=== PATIENT | female | born 1970 | race Caucasian/White ===

== ENCOUNTER → 2021-01-29 17:14 | Outpatient (CLI) | payer BC, SELFPAY ==
--- NOTE | ~2021-01-29 | MM_ITS ---
EXAMINATION: MM screening rekha BI w baldemar HISTORY: Screening mammogram TECHNIQUE: Craniocaudal and mediolateral oblique 3-D tomosynthesis images were obtained and synthetic 2-D images were generated. CAD analysis was submitted and interpreted. COMPARISON: 12/06/2019 bilateral diagnostic digital mammogram and bilateral complete breast ultrasound examination 06/21/2019 and 12/04/2018 diagnostic right digital mammogram and limited right breast ultrasound 11/18/2018, 11/13/2017, 10/04/2016, 09/15/2015 bilateral digital screening mammogram examinations BREAST PARENCHYMAL COMPOSITION: The breasts are heterogeneously dense, which may obscure small masses . FINDINGS: There is no evidence of suspicious mass, calcification, or architectural distortion to sugg est malignancy in either breast. There has been no suspicious interval change. IMPRESSION: 1. No mammographic evidence of malignancy. 2. Recommend routine screening mammography in one year. BI-RADS Category 1: Negative Reviewed, dictated and finalized at location A. ER REPAIR
== END ==
PROVIDERS: Visit Provider Obstetrics & Gynecology
DX: Z12.31 Encounter for screening mammogram for malignant neoplasm of breast (principal)
CPT/HCPCS: 77063; 77067

== ENCOUNTER → 2022-03-28 16:01 | Outpatient (CLI) | payer BC, SELFPAY ==
--- NOTE | ~2022-03-28 | MM_ITS ---
EXAMINATION: MM screening rekha BI w baldemar HISTORY: Screening mammogram TECHNIQUE: Craniocaudal and mediolateral oblique 3-D tomosynthesis images were obtained and synthetic 2-D images were generated. CAD analysis was submitted and interpreted. COMPARISON: 01/29/2021 bilateral screening mammogram 12/06/2019 bilateral diagnostic mammography and bilateral complete breast ultrasound 06/21/2019 and 12/04/2018 diagnostic right mammogram and limited right breast ultrasound 11/18/2018 bilateral screening mammogram BREAST PARENCHYMAL COMPOSITION: The breasts are heterogeneously dense, which may obscure small masses . FINDINGS: There is no evidence of suspicious mass, calcification, or architectural distortion to sugg est malignancy in either breast. There has been no suspicious interval change. IMPRESSION: 1. No mammographic evidence of malignancy. 2. Recommend routine screening mammography in one year. BI-RADS Category 1: Negative Reviewed, dictated and finalized at location A.
== END ==
PROVIDERS: PCP Internal Medicine; Visit Provider Obstetrics & Gynecology
DX: Z12.31 Encounter for screening mammogram for malignant neoplasm of breast (principal)
CPT/HCPCS: 77063; 77067

== ENCOUNTER → 2022-05-20 08:44 | Outpatient (CLI) | payer BC, SELFPAY ==
--- NOTE | ~2022-05-20 | US_ITS ---
EXAMINATION: US right upper quadrant DATE: 05/20/2022 09:00 INDICATION: Elevated liver enzymes TECHNIQUE: Multiple grayscale and Doppler ultrasound images of the abdomen were obtained. COMPARISON: 06/24/2019 FINDINGS: The head and body of the pancreas are normal. The pancreatic tail is obscured by bowel gas. The liver demonstrates increased echogenicity, heterogenous echotexture, and decreased through trans mission. No surface nodularity. Normal hepatopetal flow in the main portal vein. The gallbladder is s urgically absent. The normal common bile duct measures 4 mm. IMPRESSION: 1. Diffuse hepatic steatosis. Reviewed, dictated and finalized at location A.
== END ==
PROVIDERS: PCP Internal Medicine; Visit Provider Internal Medicine Gastroenterology
DX: K75.9 Inflammatory liver disease, unspecified (principal); K76.0 Fatty (change of) liver, not elsewhere classified
CPT/HCPCS: 76705

== ENCOUNTER → 2023-05-15 14:52 | Outpatient (CLI) | payer BC, SELFPAY ==
--- NOTE | ~2023-05-15 | MM_ITS ---
EXAMINATION: MM screening rekha BI w baldemar HISTORY: Screening mammogram TECHNIQUE: Craniocaudal and mediolateral oblique 3-D tomosynthesis images were obtained and synthetic 2-D images were generated. CAD analysis was submitted and interpreted. COMPARISON: 03/28/2022, 01/29/2021 bilateral screening mammogram examinations BREAST PARENCHYMAL COMPOSITION: The breasts are heterogeneously dense, which may obscure small masses . FINDINGS: Partially circumscribed mass is suggested 2.2 cm deep to the nipple on MLO Tomosynthesis im age 57/74, clinical Tomosynthesis image 33/70. Diagnostic right mammogram and right breast ultrasound examination are recommended. Possible mass or masses suggested on the left. Heterogeneously dense stroma limits evaluation. Bilate ral diagnostic mammography and breast ultrasound examination are recommended. There is no evidence of suspicious mass, calcification, or architectural distortion to suggest malignancy in either breast. There has been no suspicious interval change. IMPRESSION: 1. Possible bilateral breast masses 2. Bilateral diagnostic mammography and bilateral breast ultrasound examination are recommended BI-RADS Category 0: Incomplete: Needs additional imaging evaluation. Reviewed, dictated and finalized at location A.
== END ==
PROVIDERS: PCP Internal Medicine; Visit Provider Obstetrics & Gynecology
DX: Z12.31 Encounter for screening mammogram for malignant neoplasm of breast (principal)
CPT/HCPCS: 77063; 77067

== ENCOUNTER 2023-06-17 09:58 | Outpatient (CLI) | payer BC, SELFPAY ==
--- NOTE | ~2023-06-17 | MMUS_ITS ---
EXAMINATION: MM diagnostic rekha BI w baldemar, US breast BI complete HISTORY: Bilateral breast masses suggested on 05/15/2023 bilateral screening mammogram TECHNIQUE: Additional 3-D tomosynthesis images of both breasts were performed and synthetic 2-D image s were generated. CAD analysis was submitted and interpreted. High resolution complete bilateral esther st ultrasound examination including all 4 quadrants and subareolar areas was performed. COMPARISON: 05/15/2023 bilateral screening mammogram FINDINGS: MAMMOGRAPHIC FINDINGS: A circumscribed benign-appearing approximately 13 x 15 mm mass with halo sign is noted anteriorly in the upper mid right breast, appearing mammographically benign. Heterogeneously dense stroma of both breasts may obscure additional masses. Therefore, complete bilat eral breast ultrasound examination was performed. ULTRASOUND: Right breast: 12:00 subareolar area, corresponding to the mammographic findings: There is a 7.4 x 13 x 12 mm circum scribed hypoechoic solid appearing lesion with through transmission posterior enhancement, likely a b enign fibroadenoma or benign complicated cyst. 5:00 subareolar area: 3.2 x 4.5 x 5.7 mm simple cyst with through transmission and posterior enhancem ent 8:00 4 cm from nipple: Septated 4.4 x 5 x 3.2 mm cyst 10:00 7 cm from nipple: Parallel circumscribed 2.8 x 5.7 x 4.4 mm sonolucency consistent with small c yst Left breast: 12:00 1 cm from nipple: Irregular hypoechoic solid mass lesion measuring approximately 12 x 12 mm. Th e margins are spiculated and irregular. Ultrasound-guided biopsy is recommended. 3:00 3 cm from nipple: Parallel circumscribed hypoechoic 2.8 x 6.7 x 7.4 mm lesion without shadowing or internal vascularity, likely benign IMPRESSION: 1. Suspicious irregular 12 mm solid mass of left breast at 12:00 1 cm from nipple 2. Ultrasound-guided biopsy of left 12:00 mass is recommended BI-RADS category 4, suspicious findings. Dr. Watson telephoned the report and ultrasound-guided biopsy recommendation for left breast 12:00 lesi on on 06/17/2023 at 1213 hours to Sofy, Patient Access Associate, who indicated she was only person in office, and indicated she would relay message to Dr. Schneider. Reviewed, dictated and finalized at location L. IMPRESSION: 1. Suspicious irregular 12 mm solid mass of left breast at 12:00 1 cm from nipp le 2. Ultrasound-guided biopsy of left 12:00 mass is recommended BI-RADS category 4, suspicious findings. Dr. Watson telephoned the report and ultrasound-guided biopsy recommendation for left breast 12:00 lesion on 06/17/2023 at 1213 hours to Sofy Patient Access Associate, who indicated she was only person in office, and indicated she would relay message to Dr. Schneider.
== END 2023-06-17 09:59 ==
LOC: MICIMG 10:00
PROVIDERS: PCP Internal Medicine; Visit Provider Obstetrics & Gynecology
DX: R92.8 Other abnormal and inconclusive findings on diagnostic imaging of breast (principal); N63.10 Unspecified lump in the right breast, unspecified quadrant
CPT/HCPCS: 76641; 77062; 77066; G0279

== ENCOUNTER 2024-09-29 11:22 | Outpatient (CLI) | payer OTHER, SELFPAY ==
[2024-09-29 12:14] LABS: Hematocrit 41.3 % (37.0-47.0); Mean Corpuscular HGB Conc 31.5 g/dl (32-36); Mean Corpuscular Hemoglobin 27.7 pg (26-34); Mean Corpuscular Volume 88.1 fl (80-100); Mean Platelet Volume 9.7 fl (7.4-10.4); Platelet Count Result 285 k/mm3 (150-375); Red Blood Count 4.69 M/mm3 (4.2-5.4); Red Cell Distribution Width 13.3 % (11.5-14.5); White Blood Count 5.7 K/mm3 (4.5-10.0)
== END 2024-09-29 11:23 | disposition home or self-care (01) ==
PROVIDERS: PCP Internal Medicine; Visit Provider Obstetrics & Gynecology
DX: Z01.818 Encounter for other preprocedural examination (principal); Z85.3 Personal history of malignant neoplasm of breast
CPT/HCPCS: 36415; 85027

== ENCOUNTER 2024-10-07 00:52 | Day surgery (SDC) | payer OTHER, SELFPAY ==
[2024-09-28 14:29] VITALS: BMI 33.9
--- NOTE | 2024-09-28 14:39 | PC.NURSE ---
Report to the Outpatient Waiting Room, entrance under the green pavilion located off [facility], at time _8:00 AM on date _10-07-2024 . Planned Procedure Time: ___10:00AM .? Time changes happen often and if your time is changed the preop area will call you the afternoon before. - You and your visitor will be asked to self-screen and do not enter if you have any COVID symptoms. Please call surgeon if you need to reschedule. - A mask is optional within the hospital at this time. Patients may have clear liquids (water, carbonated beverages, clear teas, apple juice) until 3 hours prior to surgery with a maximum of 20 ounces. STOP AT 7AM - No food from midnight until time of surgery and no smoking - Take only the following medications with a SIP of water on the morning of surgery: ANASTROZOLE DO NOT STOP ANY OF YOUR OTHER PRESCRIPTION MEDICATIONS PRIOR TO SURGERY EXCEPT THE FOLLOWING: STOP TAKING ALL VITAMINS AND SUPPLEMENTS BEFORE SURGERY WITH THE LAST DOST ON: 10-02-2024 Medications to discontinue per physician _DO NOT TAKE YOUR FENOFIBRIC ACID UNTIL AFTER SURGERY AT YOUR NORMAL AFTERNOON TIME. Please no make-up, nail hebrew, hairspray, perfume, deodorant, or body powder the day of surgery.? No jewelry (including any body piercings) or valuables the day of surgery, leave them at home.? Please take a shower or bath the night before, or the morning of, surgery with an antibacterial soap.? Wear comfortable, loose fitting clothing.? - Jewelry must be removed prior to entering the operating room.? Rings and piercings that are not removed may be cut off. - The hospital will not accept responsibility for valuables.? - Please leave all valuables, including medications, at home the day of surgery. If you are going home after surgery, a licensed taxi driver supervisor must drive you home.? - NO public transportation without another adult if you receive anesthesia. - We recommend that an adult stay with you for 24 hours following discharge. - We also recommend that you do not drive, make important decision, drink alcoholic beverages, or take any drugs that were not prescribed by your health care provider for at least 24 hours after your discharge time. Follow any additional instructions given to you from your surgeon. Telephone instructions given to __CARRIE/PATIENT and asked if any additional questions and then verbalized understanding. Patient advised to call surgeon office or pre surgery nurse liaison [phone] if any additional questions.
--- NOTE | 2024-10-05 16:46 | PM.IMHP ---
H&P: HPI History of Present Illness Date/Time: 10/05/24 16:46 54-year-old female presents for prophylactic bilateral salpingo oophorectomy. She was diagnosed last year with breast cancer, has had a bilateral mastectomy as well as chemo therapy and radiation therapy. Has discussed with her oncologist and they feel it would be best for her to have her ovaries removed. Has had a prior hysterectomy. Chief Complaint: Prophylactic bilateral salpingo oophorectomy Review of Systems Review of Systems: All systems reviewed & are unremarkable except as noted in HPI and below PMFSH Past Medical History Medical History Abnormal Pap smear of cervix (04/02/11) 04/02/11 REACTIVE CELLULAR CHANGES Breast cancer Fatty liver Retinal detachment (~2018) Screening mammogram, encounter for Surgical History Surgical History History of ankle surgery lt ankle History of arthroscopic knee surgery (10/06/14) History of breast biopsy (~1989) rt breast bx--benign History of cholecystectomy (~2003) History of colposcopy with cervical biopsy (07/12/05) cervicitis History of right knee surgery (08/24/14) meniscus repair History of robot-assisted laparoscopic hysterectomy (05/06/13) RA TLH--uterine fibroids, uterine prolapse--leiomyomata, chronic cervicitis S/P mastectomy, bilateral (09/25/23) Family History Family History Other Cervical cancer maternal aunt Hypertension maternal aunt Mother Hypertension Breast cancer mother--ductal carcinoma in situ Father Hypercholesterolemia Grandparent Hypertension maternal grandmother Social History Social History Smoking status: Never smoker Second hand tobacco smoke exposure: No Alcohol intake: former Substance use: never Substance use type: does not use Do You Feel Safe in your Home?: Yes Lack of Transportation: No Lack of Food: Sometimes True Current Housing: I Have Housing Concerned About Future Housing: No Difficulty Paying Gas/Electric Bills: YES Difficulty Paying for Meds: YES Currently Unemployed: No Education: Bachelor's Degree Difficulty w/ Childcare or Family Care: No Living arrangements: with family Additional living arrangements comments: Occupation/Education: occupation 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 Gender identity (if verbalized by the patient): Female Sexual Orientation (if Verbalized by the Patient): Straight or Heterosexual Spiritual care concerns: No Meds Home Medications and Allergies Home Medications Medication Instructions Recorded Confirmed Type fenofibric acid (choline) 135 mg 135 mg PO DAILY 03/12/22 09/28/24 History capsule,delayed release anastrozole 1 mg tablet 1 mg PO DAILY 06/15/24 09/28/24 History goserelin 3.6 mg subcutaneous 3.6 mg subcut Q28D 06/15/24 09/28/24 History implant (Zoladex) ascorbate calcium (vitamin C) 500 500 mg PO DAILY 09/28/24 09/28/24 History mg capsule cholecalciferol (vitamin D3) 50 6,000 unit PO DAILY 09/28/24 09/28/24 History mcg (2,000 unit) capsule (Vitamin D3) magnesium glycinate 100 mg (as 400 mg PO DAILY 09/28/24 09/28/24 History glycinate) tablet zoledronic acid 4 mg/100 mL in 4 mg IV [id number] 09/28/24 09/28/24 History mannitol 5 %-water intravenous piggybck Allergies Allergy/AdvReac Type Severity Reaction Status Date / Time No Known Allergies Allergy Verified 09/28/24 13:50 Exam Const: General: cooperative, healthy appearing and comfortable Resp: Effort & Inspection: normal respiratory effort Auscultation: clear to auscultation bilaterally Cardio: Rate: regular rate Rhythm: regular rhythm GI: Inspection: normal to inspection Auscultation: normal bowel sounds : External Female Exam: normal external appearance Speculum Exam - Vagina: normal appearance of the vagina Speculum Exam - Cervix: Cervix absent Bimanual exam- vagina & uterus: uterus absent Bimanual Exam- Adnexa, other: normal adnexae Assessment and Plan Assessment and plan (1) Personal history of breast cancer: Code(s): Z85.3 - Personal history of malignant neoplasm of breast Status: Acute Plan 1. Proceed with robotic assisted laparoscopic bilateral salpingo oophorectomy.
[2024-10-07] VITALS (11 sets, daily range): BP systolic 107–163; BP diastolic 57–78; PULSE 66–96; RESP 12–18; TEMP 36.2–36.6; O2SAT 93–100
--- NOTE | 2024-10-07 07:14 | WPDHPUPDATE1 ---
History and Physical Update Update Date/Time: 10/07/24 07:14 History and Physical has been reviewed, including an updated exam of the patient. There are NO changes in the patient's condition. Risks, benefits, and alternatives have been discussed and questions answered. Patient agrees to proceed with procedure.
[2024-10-07] MEDS: ACETAMINOPHEN 500 MG TABLET 1000 MG PO (07:30)
[2024-10-07] MEDS: KETOROLAC 15 MG/ML VIAL (*BKC) IV PUSH (07:38)
--- NOTE | 2024-10-07 08:48 | P.PNAN_ITS ---
Anes - Initial Pre Proc Eval Procedure: Operation Date: 10/07/24 09:00 Proposed Procedures p Robotic Assisted Laparoscopic Bilateral Salpingo Oophorectomy - Iglesia Schneider MD Date/Time: 10/07/24 08:48 Surgeon: Iglesia Schneider MD Pre Op Diagnosis: breast CA Patient Data Age: 54 Gender: F Height: 1.75 m Weight: 104.8 kg Last Vital Signs Temp 36.2 C L 10/07/24 07:04 Pulse 95 10/07/24 07:04 Resp 18 10/07/24 07:04 BP 139/60 10/07/24 07:04 Pulse Ox 98 10/07/24 07:04 O2 Del Method Room Air 10/07/24 07:04 Allergies Allergy/AdvReac Type Severity Reaction Status Date / Time No Known Allergies Allergy Verified 10/07/24 07:45 Home Medications Medication Instructions Recorded Confirmed Type fenofibric acid (choline) 135 mg 135 mg PO DAILY 03/12/22 10/07/24 History capsule,delayed release anastrozole 1 mg tablet 1 mg PO DAILY 06/15/24 10/07/24 History goserelin 3.6 mg subcutaneous 3.6 mg subcut Q28D 06/15/24 10/07/24 History implant (Zoladex) ascorbate calcium (vitamin C) 500 500 mg PO DAILY 09/28/24 10/07/24 History mg capsule cholecalciferol (vitamin D3) 50 6,000 unit PO DAILY 09/28/24 10/07/24 History mcg (2,000 unit) capsule (Vitamin D3) magnesium glycinate 100 mg (as 400 mg PO DAILY 09/28/24 10/07/24 History glycinate) tablet zoledronic acid 4 mg/100 mL in 4 mg IV [id number] 09/28/24 10/07/24 History mannitol 5 %-water intravenous piggybck Laboratory Tests 10/07/24 07:27 Blood Type Pending Antibody Screen Pending Patient hx anesthesia problems: none Family hx anesthesia problems: none Results Review: All pre-operative results and documents have been reviewed as part of the pre- operative evaluation. [facility] Past Medical History Medical History Abnormal Pap smear of cervix (04/02/11) 04/02/11 REACTIVE CELLULAR CHANGES Breast cancer Fatty liver Retinal detachment (~2018) Screening mammogram, encounter for Surgical History Surgical History History of ankle surgery lt ankle History of arthroscopic knee surgery (10/06/14) History of breast biopsy (~1989) rt breast bx--benign History of cholecystectomy (~2003) History of colposcopy with cervical biopsy (07/12/05) cervicitis History of right knee surgery (08/24/14) meniscus repair History of robot-assisted laparoscopic hysterectomy (05/06/13) RA TLH--uterine fibroids, uterine prolapse--leiomyomata, chronic cervicitis S/P mastectomy, bilateral (09/25/23) Family History Family History Other Cervical cancer maternal aunt Hypertension maternal aunt Mother Hypertension Breast cancer mother--ductal carcinoma in situ Father Hypercholesterolemia Grandparent Hypertension maternal grandmother Social History Social History Smoking status: Never smoker Second hand tobacco smoke exposure: No Alcohol intake: former Substance use: never Substance use type: does not use Do You Feel Safe in your Home?: Yes Lack of Transportation: No Lack of Food: Sometimes True Current Housing: I Have Housing Concerned About Future Housing: No Difficulty Paying Gas/Electric Bills: YES Difficulty Paying for Meds: YES Currently Unemployed: No Education: Bachelor's Degree Difficulty w/ Childcare or Family Care: No Living arrangements: with family Additional living arrangements comments: Occupation/Education: occupation 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 Gender identity (if verbalized by the patient): Female Sexual Orientation (if Verbalized by the Patient): Straight or Heterosexual Spiritual care concerns: No Anes - Eval Final PreProcedure Day of Procedure 10/07/24 08:48 Patient weight: obese Heart: regular rate and rhythm Lungs: clear to auscultation Airway: Mallampati scale class III Neurological: alert and oriented Last oral intake: >/= 8 hours ASA classification: III Emergent: no Anesthetic plan: proceed Anesthesia type and monitoring: general ETT and standard monitoring Results Review: All pre-operative results and documents have been reviewed as part of the pre- operative evaluation. Informed Consent: The patient's anesthetic plan and its attendant risks and benefits were discussed with the patient/family/POA. Questions were solicited and answers provided to the satisfaction of the patient/family/POA.
--- NOTE | 2024-10-07 10:02 | W.PM.PROC2 ---
Procedure Note - Detailed Date of Procedure 10/07/24 Pre-op Diagnosis 1. Personal history of breast cancer Post-op Diagnosis Same Procedure Performed Robotic assisted laparoscopic bilateral salpingo oophorectomy Surgeon Iglesia Schneider MD Anesthesia General Findings uterus surgically absent. Tubes and ovaries without abnormality. Description of Procedure Patient prepped and draped in usual manner for this procedure. Trocars were placed under direct visualization, instruments were placed after set up to the da [place] system. Uterus was noted to be absent, and tubes and ovaries bilaterally without evidence of cysts or adhesions. The infundibulopelvic ligament was then cauterized and cut bilaterally and tubes removed without difficulty. Ureters were identified and were 2-3 cm distal to where the clamps were placed. Using a Endo-Catch bag both tubes and ovaries removed without difficulty. Gas was allowed to escape, instruments removed, incisions approximated using 4-0 Monocryl. Patient was sent to recovery room in stable condition. Estimated Blood Loss 10 Drains No Packing No Pathology Yes Complications No immediate complications Condition Stable Disposition PACU [facility] Billing Surgery - Charge Forward: Surgery Billing
[2024-10-07] MEDS: LACTATED RINGERS 1,000 ML 30 ML IV CONT ×2 (10:03)
[2024-10-07] MEDS: ONDANSETRON HCL ODT 4 MG TABLET PO (12:44)
== END 2024-10-07 12:45 | disposition home or self-care (01) ==
PROVIDERS: PCP Internal Medicine; Visit Provider Obstetrics & Gynecology
PROC: 8E0W4CZ Robotic Assisted Procedure of Trunk Region, Percutaneous Endoscopic Approach (ICD-10-PCS; CPT 49320; principal; 2024-10-07 09:00)
DX: Z40.02 Encounter for prophylactic removal of ovary(s) (principal); Z85.3 Personal history of malignant neoplasm of breast; Z90.710 Acquired absence of both cervix and uterus; Z90.13 Acquired absence of bilateral breasts and nipples; Z92.21 Personal history of antineoplastic chemotherapy; Z92.3 Personal history of irradiation
CPT/HCPCS: 58661; S2900; 36415; 86850; 86900; 86901; 88305; A9270; J1100; J1171; J1200; J1885; J2003; J2250; J2405; J2704; J3010; J7030; J7120